=== PATIENT | female | born 1995 | race Caucasian/White ===

== ENCOUNTER 2023-02-17 15:16 | Emergency (ER) | payer BC ==
[2023-02-17] MEDS ORDERED: Sodium Chloride 0.9% 10 ML Syringe FLUSH PRN (16:24)
[2023-02-17] MEDS ORDERED: Ondansetron 4 MG/2 ML SDV IVPUSH ONE (16:25)
[2023-02-17] MEDS ORDERED: Sodium Chloride 0.9% 1,000 ML IV ONE (16:25)
== END 2023-02-17 18:07 | disposition home or self-care (01) ==
LOC: JP.ED 15:16
DX: K52.9 Noninfective gastroenteritis and colitis, unspecified (principal); Z86.16 Personal history of COVID-19; Z88.2 Allergy status to sulfonamides; Z98.890 Other specified postprocedural states
CPT/HCPCS: 96361; 96374; 99283; J2405; J7030